=== PATIENT | female | born 1990 | race Caucasian/White ===

== ENCOUNTER 2017-04-10 15:44 | Emergency (ER) | payer OTHER ==
[2017-04-10 16:10] VITALS: BP 142/96
--- NOTE | 2017-04-10 17:59 | UC ---
Complaint Female HPI - HPI Summary HPI Summary: pain and burning with urination began this morning no fevers, chills or back pain - History Of Current Complaint Chief Complaint: UCGU Stated Complaint: BURNING URINATION Time Seen by Provider: 04/10/17 17:53 Hx Obtained From: Patient Hx Last Menstrual Period: 03/25/17 ?: No Onset/Duration: Sudden Onset, Lasting Hours, Still Present Timing: Constant Severity Initially: Mild Severity Currently: Mild Character: Burning Aggravating Factor(s): Urination Alleviating Factor(s): Position Associated Signs And Symptoms: Positive: Negative - Allergies/Home Medications Allergies/Adverse Reactions: Allergies Allergy/AdvReac Type Severity Reaction Status Date / Time Amoxicillin Allergy Rash Verified 04/10/17 16:07 PMH/Surg Hx/FS Hx/Imm Hx Previously Healthy: Yes - Surgical History Surgical History: None - Family History Known Family History: Positive: Unknown - Social History Occupation: Employed Full-time Lives: With Family Alcohol Use: Rare Substance Use Type: None Smoking Status (MU): Never Smoked Tobacco Have You Smoked in the Last Year: No Review of Systems Constitutional: Negative Skin: Negative Eyes: Negative ENT: Negative Respiratory: Negative Cardiovascular: Negative Gastrointestinal: Negative Genitourinary: Dysuria, Frequency, Urgency Motor: Negative Neurovascular: Negative Musculoskeletal: Negative Neurological: Negative Psychological: Negative Is Patient Immunocompromised?: No All Other Systems Reviewed And Are Negative: Yes Physical Exam Triage Information Reviewed: Yes Appearance: Well-Appearing, No Pain Distress, Well-Nourished Vital Signs: Initial Vital Signs Temp 98 F 04/10/17 16:08 Pulse 106 04/10/17 16:08 Resp 20 04/10/17 16:08 BP 142/96 04/10/17 16:08 Pulse Ox 100 04/10/17 16:08 Vital Signs Reviewed: Yes Eye Exam: Normal Eyes: Positive: Conjunctiva Clear ENT Exam: Normal ENT: Positive: Normal ENT inspection, Hearing grossly normal, Pharynx normal. Negative: Nasal congestion, Nasal drainage, Trismus, Muffled voice, Hoarse voice Dental Exam: Normal Neck exam: Normal Neck: Positive: Supple, Nontender Respiratory Exam: Normal Respiratory: Positive: Chest non-tender, No respiratory distress, No accessory muscle use Cardiovascular Exam: Normal Cardiovascular: Positive: RRR, Pulses Normal, Brisk Capillary Refill Abdominal Exam: Normal Abdomen Description: Positive: Nontender, No Organomegaly, Soft. Negative: CVA Tenderness (R), CVA Tenderness (L), McBurney's Point Tenderness Bowel Sounds: Positive: Present Musculoskeletal Exam: Normal Musculoskeletal: Positive: Strength Intact, ROM Intact, No Edema Neurological Exam: Normal Neurological: Positive: Alert, Muscle Tone Normal Psychological Exam: Normal Skin Exam: Normal Complaint Female Dx - Course Course Of Treatment: increase fluids, macrobid follow with pcp prn, culture urine - Differential Dx/Diagnosis Provider Diagnoses: UTI Discharge - Discharge Plan Condition: Stable Disposition: HOME Prescriptions: Nitrofurantoin Monohyd Macro [Macrobid] 100 mg PO BID #20 cap Patient Education Materials: Urinary Tract Infection in Women (ED) Referrals: Delia Saleem MD [Primary Care Provider] - If Needed
== END 2017-04-10 18:08 | disposition home or self-care (01) ==
LOC: UCEAST 15:44
DX: N39.0 Urinary tract infection, site not specified (principal); Z88.3 Allergy status to other anti-infective agents
CPT/HCPCS: 81003; 81025; 87077; 87086; 87186; 99212; G0463

== ENCOUNTER 2017-06-20 18:16 | Emergency (ER) | payer OTHER ==
[2017-06-20 18:24] VITALS: BP 152/103
--- NOTE | 2017-06-20 18:26 | UC ---
Complaint Female HPI - HPI Summary HPI Summary: Pt presents with urinary frequency and bladder pressure for the last 4 days. She tells me that she had a UTI in March and felt similar, was treated with anbx and her symptoms went away. She also has had vaginal discharge and pelvic discomfort for the last few months and is being evaluated by OBGYN/Women's Health for this. She has had multiple pelvic exams and tests performed - all of which were normal, per pt. Denies fever, chills, SOB, chest pain, abdominal pain , n/v/d/c. No hx of kidney stone. - History Of Current Complaint Chief Complaint: UCGU Stated Complaint: BURNING AND FREQUENT URINATION Time Seen by Provider: 06/20/17 18:26 Hx Obtained From: Patient Hx Last Menstrual Period: 05/30/17 Onset/Duration: Gradual Onset Timing: Constant Severity Initially: Mild Severity Currently: Mild Pain Intensity: 3 Pain Scale Used: 0-10 Numeric - Allergies/Home Medications Allergies/Adverse Reactions: Allergies Allergy/AdvReac Type Severity Reaction Status Date / Time amoxicillin Allergy Rash Verified 06/20/17 18:20 Home Medications: Home Medications Cholecalciferol TAB* [Vitamin D TAB*] 1,000 unit PO DAILY 06/20/17 [History Confirmed 06/20/17] Cyanocobalamin TAB* [Vitamin B12 TAB*] 1,000 mcg PO DAILY 06/20/17 [History Confirmed 06/20/17] PMH/Surg Hx/FS Hx/Imm Hx Previously Healthy: Yes - Surgical History Surgical History: None - Family History Known Family History: Positive: Unknown - Social History Occupation: Employed Full-time Lives: Alone Alcohol Use: Rare Substance Use Type: None Smoking Status (MU): Never Smoked Tobacco Have You Smoked in the Last Year: No Review of Systems Constitutional: Negative Skin: Negative Respiratory: Negative Cardiovascular: Negative Gastrointestinal: Negative Genitourinary: Frequency, Urgency, Vaginal/Penile Discharge Neurological: Negative Psychological: Negative All Other Systems Reviewed And Are Negative: Yes Physical Exam - Summary Physical Exam Summary: GENERAL: NAD. WDWN. No pain distress. SKIN: No rashes, sores, ulcers, masses, lesions. NECK: Supple. Nontender. No lymphadenopathy. CHEST: CTAB. No r/r/w. No accessory muscle use. Breathing comfortably and in no distress. CV: RRR. Without m/r/g. Pulses intact. Brisk cap refill. ABDOMEN: Soft. NTTP. No distention or guarding. No organomegaly. No CVA tenderness. Bowel sounds present x4. NEURO: Alert. CN II-XII grossly intact. PSYCH: Age appropriate behavior. Triage Information Reviewed: Yes Vital Signs: Initial Vital Signs Temp 97.8 F 06/20/17 18:21 Pulse 92 06/20/17 18:21 Resp 16 06/20/17 18:21 BP 152/103 06/20/17 18:21 Pulse Ox 100 06/20/17 18:21 Complaint Female Dx - Course Course Of Treatment: UA was negative. Will send for culture. I advised her to undergo a pelvic exam for further evaluation - she declined today and said that she would prefer to see her OBGYN tomorrow for this. - Differential Dx/Diagnosis Provider Diagnoses: Urinary frequency. Bladder pressure Discharge - Discharge Plan Condition: Stable Disposition: HOME Referrals: Delia Saleem MD [Primary Care Provider] - Additional Instructions: If you develop a fever, shortness of breath, chest pain, new or worsening symptoms - please call your PCP or go to the ED. Your blood pressure was high at todays visit. Please see your primary provider within 4 weeks for recheck and re-evaluation. 1) Please schedule a follow up appointment with your OBGYN or Women's Health for further investigation of your urinary and pelvic symptoms. 2) Your urine was normal on testing today, but we will send it for culture and call you with the results.
[2017-06-21 11:15] LABS: Urine Appearance Cloudy; Urine Blood Negative (Negative); Urine Color Yellow; Urine Ketones Negative (Negative); Urine Protein Negative (Negative); Urine Specific Gravity 1.023 (1.010-1.030); Urine Urobilinogen Negative (Negative)
== END 2017-06-20 18:50 | disposition home or self-care (01) ==
LOC: UCEAST 18:16
DX: R35.0 Frequency of micturition (principal); R39.89 Other symptoms and signs involving the genitourinary system; B95.1 Streptococcus, group B, as the cause of diseases classified elsewhere; Z87.440 Personal history of urinary (tract) infections; Z88.1 Allergy status to other antibiotic agents
CPT/HCPCS: 81003; 81015; 87077; 87086; 99211; G0463